=== PATIENT | male | born 1990 | race Caucasian/White ===

== ENCOUNTER 2022-10-16 22:00 | Emergency (ER) | payer SELFPAY ==
[2022-10-16 22:09] LABS: BASO% 0.2 % (0-3); EOS% 2.6 % (0-8); HEMATOCRIT 46.3 % (39.0-50.0); HEMOGLOBIN 15.4 g/dl (14.0-18.0); IMMATURE GRANULOCYTES 0.4 % (0.0-5.0); LYMPH% 49.4 % (15-41); MEAN CELL VOLUME 91.3 fL CALC (80.0-100.0); MEAN CORPUSCULAR HGB 30.4 pG CALC (26.0-32.0); MEAN CORPUSCULAR HGB CONC 33.3 g/dL CAL (32.0-36.0); MONO% 5.4 % (2-13); NEUT# 5.58 thou/uL (1.82-7.42); RED BLOOD COUNT 5.07 mill/uL (4.70-6.10); RED CELL DISTRI WIDTH 12.6 % (11.5-15.5)
[2022-10-16 22:22] LABS: ALBUMIN 4.6 g/dL (3.2-5.0); ALKALINE PHOSPHATASE 130 u/l (38-126); ANION GAP 17 (6-22 (CALC)); BILIRUBIN, TOTAL 0.2 mg/dL (0.2-1.3); BUN 11 mg/dL (9-20); BUN/CREATININE RATIO 13 (12-20 (CALC)); CARBON DIOXIDE 22 mmol/l (22-30); CHLORIDE 108 mmol/l (95-108); CREATININE 0.9 mg/dL (0.7-1.3); GFR FOR AFR.AMER. > 60 ML/MIN (>=60 (CALC)); GFR OTHER RACES > 60 ML/MIN (>=60 (CALC)); SGOT/AST 593 u/l (17-59); SODIUM 142 mmol/l (137-146); TOTAL PROTEIN 8.6 g/dL (6.3-8.2)
[2022-10-16 23:35] LABS: AMYLASE 66 u/l (30-110); LIPASE 58 u/l (23-300)
[2022-10-17 02:05] LABS: URINE BILIRUBIN - DIPSTICK NEGATIVE (NEGATIVE); URINE COLOR YELLOW; URINE GLUCOSE - DIPSTICK NEGATIVE (NEGATIVE); URINE KETONE NEGATIVE (NEGATIVE); URINE PH 5.5 (4.5-8.0); URINE PROTEIN - DIPSTICK NEGATIVE (NEG-TRACE); URINE UROBILINOGEN - DIPSTICK 0.2 E.U./dL (0.2)
[2022-10-17 02:19] LABS: URINE BLOOD DIPSTICK SMALL (NEGATIVE); URINE LEUK ESTERASE NEGATIVE (NEGATIVE); URINE NITRITE - DIPSTICK NEGATIVE (Negative); URINE WBC 0-2 WBC/hpf (0-5)
[2022-10-17 02:20] LABS: URINE BACTERIA FEW hpf; URINE EPITHELIAL CELLS FEW EPI/hpf (0-FEW)
[2022-10-17 07:01] VITALS: BP 113/68
[2022-10-17 07:17] VITALS: BP 141/69
[2022-10-17 07:31] VITALS: BP 128/57
[2022-10-17 10:20] VITALS: BP 128/57
== END 2022-10-17 10:34 | disposition home or self-care (01) | DRG 897 ==
LOC: EDBD 22:00 → ED 22:00
PROVIDERS: Emergency Medicine
DX: F10.129 Alcohol abuse with intoxication, unspecified (principal); B19.20 Unspecified viral hepatitis C without hepatic coma; R74.01 Elevation of levels of liver transaminase levels; Y90.8 Blood alcohol level of 240 mg/100 ml or more; Z20.822 Contact with and (suspected) exposure to COVID-19

== ENCOUNTER 2023-11-03 13:45 | Emergency (ER) | payer SELFPAY ==
[~2023-11-03] VITALS: Ht 165.1 cm; Wt 90.7 kg
[2023-11-03] MEDS ORDERED: POVIDONE IODINE 0.5 OZ/BTL TOP ONE (14:50)
[2023-11-03] MEDS ORDERED: LIDOcaine HCl 1% (Local Anesth.) 20 ML VIAL STI STA (14:50)
[2023-11-03] MEDS ORDERED: SODIUM CHLORIDE 1,000 ML BTL IR ONE (14:50)
[2023-11-03] MEDS ORDERED: NEOMYCIN-BACITRACIN-POLYMYXIN 0.5 GM/PAK PAK TOP ONE (14:50)
[2023-11-03] MEDS ORDERED: Diph, Acellular Pertussis, Tet 0.5 ML/VIAL (Tdap) SDV IM ONE (14:50)
[2023-11-03] MEDS ORDERED: cefTRIAXone SODIUM 1 GM/VIAL SDV IM ONE (15:50)
[2023-11-03] MEDS ORDERED: LIDOcaine HCl 1% (Local Anesth.) 20 ML VIAL IM STA (15:51)
[2023-11-03 16:31] VITALS: BP 154/79
[2023-11-03] MEDS ORDERED: NAPROXEN500 MG PO (16:45)
[2023-11-03] MEDS ORDERED: KEFLEX500 MG PO (16:45)
[2023-11-03] MEDS ORDERED: HYDROcodone 5 MG/Acetaminophen 325 MG/COMBO PO ONE (16:50)
[2023-11-03 17:01] VITALS: BP 150/70
== END 2023-11-03 17:05 | disposition home or self-care (01) | DRG 605 ==
LOC: ED 13:45
PROC: 0HQNXZZ Repair Left Foot Skin, External Approach (ICD-10-PCS; principal; 2023-11-03)
DX: S91.312A Laceration without foreign body, left foot, initial encounter (principal); S00.81XA Abrasion of other part of head, initial encounter; X99.8XXA Assault by other sharp object, initial encounter

== ENCOUNTER 2023-11-14 21:08 | Emergency (ER) | payer SELFPAY ==
[~2023-11-14] VITALS: Ht 165.1 cm; Wt 95.0 kg
[~2023-11-14 21:08] MED LIST: AMOXICILLIN500 M2 PO; AMOXICILLIN500 MG PO; BACTRIM DS1 TAB PO; BENADRYL 50MG C50 MG PO; DECADRON6 MG PO; ELIMITE52 TOP; KEFLEX500 MG PO; LORTAB 7.5-3251 TAB PO; MOTRIN800 MG/TAB PO; NAPROXEN500 MG PO; ONDANSETRON4 MG PO; PEPCID20 MG PO; PEPCID40 MG PO; PREVACID30 M3 PO; PROTONIX40 M2 PO; VOLTAREN75 MG PO; ZITHROMAX250 MG PO; ZOFRAN4 M1 PO; ZPAK PO; [UNRECOGNIZED DRUG - REMARK]
[2023-11-14 21:21] VITALS: BP 153/94
[2023-11-14 21:30] VITALS: BP 143/85
[2023-11-14 21:45] VITALS: BP 145/92
[2023-11-14 22:00] VITALS: BP 128/74
== END 2023-11-14 22:10 | disposition home or self-care (01) | DRG 921 ==
LOC: ED 21:08
DX: T81.33XA Disruption of traumatic injury wound repair, initial encounter (principal); Y83.8 Other surgical procedures as the cause of abnormal reaction of the patient, or of later complication, without mention of misadventure at the time of the procedure

== ENCOUNTER 2024-04-11 21:24 | Emergency (ER) | payer SELFPAY ==
[~2024-04-11] VITALS: Ht 165.1 cm; Wt 101.0 kg
[2024-04-12 00:38] VITALS: BP 123/74
== END 2024-04-12 00:38 | disposition home or self-care (01) | DRG 153 ==
LOC: ED 21:24
DX: J06.9 Acute upper respiratory infection, unspecified (principal); K29.70 Gastritis, unspecified, without bleeding; B19.20 Unspecified viral hepatitis C without hepatic coma; Z20.822 Contact with and (suspected) exposure to COVID-19

== ENCOUNTER 2024-08-15 16:34 | Emergency (ER) | payer SELFPAY | END 2024-08-15 18:00 | disposition left against medical advice (07) | DRG 951 | LOC: ED 16:34 | DX: Z53.21 Procedure and treatment not carried out due to patient leaving prior to being seen by health care provider (principal) ==

== ENCOUNTER 2024-08-17 12:07 | Emergency (ER) | payer SELFPAY ==
[~2024-08-17] VITALS: Ht 165.1 cm; Wt 100.0 kg
[2024-08-17] VITALS (20 sets, daily range): BP systolic 96–150; BP diastolic 45–99
[2024-08-17] MEDS ORDERED: ASPIRIN 81 MG/TAB PO ONE (12:30)
[2024-08-17 13:05] LABS: BASO% 0.2 % (0-3); EOS% 1.8 % (0-8); HEMATOCRIT 44.3 % (39.0-50.0); HEMOGLOBIN 14.5 g/dl (14.0-18.0); IMMATURE GRANULOCYTES 0.2 % (0.0-5.0); LYMPH% 51.4 % (15-41); MEAN CELL VOLUME 89.7 fL CALC (80.0-100.0); MEAN CORPUSCULAR HGB 29.4 pG CALC (26.0-32.0); MEAN CORPUSCULAR HGB CONC 32.7 g/dL CAL (32.0-36.0); MONO% 10.2 % (2-13); NEUT# 2.23 thou/uL (1.82-7.42); NEUT% 36.2 % (42-76); RED BLOOD COUNT 4.94 mill/uL (4.70-6.10); RED CELL DISTRI WIDTH 12.9 % (11.5-15.5)
[2024-08-17 13:15] LABS: ALKALINE PHOSPHATASE 127 u/l (38-126); ANION GAP 15 (6-22 (CALC)); CARBON DIOXIDE 24 mmol/l (22-30); CHLORIDE 101 mmol/l (95-108); POTASSIUM 3.4 mmol/l (3.5-5.1); SGOT/AST 544 u/l (17-59); SODIUM 136 mmol/l (137-146); TOTAL PROTEIN 8.5 g/dL (6.3-8.2)
[2024-08-17 13:16] LABS: BILIRUBIN, TOTAL 0.5 mg/dL (0.2-1.3)
[2024-08-17 13:20] LABS: BUN 15 mg/dL (9-20); BUN/CREATININE RATIO 18 (12-20 (CALC)); CREATININE 0.8 mg/dL (0.7-1.3); ESTIMATED GFR 118 ML/MIN (>=90 (CALC))
[2024-08-17] MEDS ORDERED: KETOROLAC TROMETHAMINE 30 MG/ML SDV IV ONE (14:05)
[2024-08-17] MEDS ORDERED: NAPROXEN500 MG PO (16:23)
== END 2024-08-17 16:37 | disposition home or self-care (01) | DRG 313 ==
LOC: ED 12:07
PROVIDERS: Family Medicine
DX: R07.9 Chest pain, unspecified (principal); Z20.822 Contact with and (suspected) exposure to COVID-19

== ENCOUNTER 2024-09-08 10:56 | Emergency (ER) | payer SELFPAY ==
[~2024-09-08] VITALS: Ht 165.1 cm; Wt 90.0 kg
[2024-09-08 12:58] VITALS: BP 134/110
[2024-09-08 13:00] VITALS: BP 137/87
[2024-09-08] MEDS ORDERED: IPRATROPIUM-Albuterol 0.5MG-2.5MG/3 ML NEB ONE (13:00)
[2024-09-08 13:31] VITALS: BP 120/76
[2024-09-08 14:00] VITALS: BP 117/75
[2024-09-08] MEDS ORDERED: VENTOLIN HFA108 MCG IN (14:09)
[2024-09-08] MEDS ORDERED: VIBRAMYCIN100 M2 PO (14:09)
[2024-09-08 14:20] VITALS: BP 117/75
== END 2024-09-08 14:20 | disposition home or self-care (01) | DRG 195 ==
LOC: ED 10:56
DX: J18.9 Pneumonia, unspecified organism (principal); Z20.822 Contact with and (suspected) exposure to COVID-19

== ENCOUNTER 2024-10-24 08:38 | Emergency (ER) | payer SELFPAY ==
[~2024-10-24] VITALS: Ht 165.1 cm; Wt 79.3 kg
[~2024-10-24 08:38] MED LIST changes: +VENTOLIN HFA108 MCG IN; +VIBRAMYCIN100 M2 PO
[2024-10-24 08:46] VITALS: BP 136/73
[2024-10-24 09:08] VITALS: BP 133/83
[2024-10-24 09:15] VITALS: BP 129/80
[2024-10-24 09:21] LABS: ALBUMIN 3.8 g/dL (3.2-5.0); ANION GAP 10 (6-22 (CALC)); BUN 6 mg/dL (9-20); BUN/CREATININE RATIO 10 (12-20 (CALC)); CARBON DIOXIDE 28 mmol/l (22-30); CHLORIDE 103 mmol/l (95-108); CREATININE 0.6 mg/dL (0.7-1.3); ESTIMATED GFR 128 ML/MIN (>=90 (CALC)); POTASSIUM 3.6 mmol/l (3.5-5.1); SGOT/AST 376 u/l (17-59); SODIUM 137 mmol/l (137-146); TOTAL PROTEIN 8.2 g/dL (6.3-8.2)
[2024-10-24 09:23] LABS: BILIRUBIN, TOTAL 0.8 mg/dL (0.2-1.3)
[2024-10-24 09:24] LABS: ALKALINE PHOSPHATASE 312 u/l (38-126)
[2024-10-24 09:25] LABS: BASO% 0.4 % (0-3); EOS% 4.5 % (0-8); HEMATOCRIT 42.9 % (39.0-50.0); IMMATURE GRANULOCYTES 0.3 % (0.0-5.0); LYMPH% 29.5 % (15-41); MEAN CELL VOLUME 91.9 fL CALC (80.0-100.0); MEAN CORPUSCULAR HGB CONC 32.6 g/dL CAL (32.0-36.0); MONO% 6.8 % (2-13); NEUT# 4.15 thou/uL (1.82-7.42); NEUT% 58.5 % (42-76); RED BLOOD COUNT 4.67 mill/uL (4.70-6.10); RED CELL DISTRI WIDTH 13.5 % (11.5-15.5)
[2024-10-24 09:30] VITALS: BP 143/86
[2024-10-24] MEDS ORDERED: AMOXICILLIN500 MG PO (09:36)
[2024-10-24 09:46] VITALS: BP 144/80
[2024-10-24 09:51] VITALS: BP 144/80
== END 2024-10-24 10:01 | disposition home or self-care (01) | DRG 153 ==
LOC: ED 08:38
PROVIDERS: Family Medicine
DX: J02.9 Acute pharyngitis, unspecified (principal); Z20.822 Contact with and (suspected) exposure to COVID-19